=== PATIENT | male | born 1985 | race Caucasian/White ===

== ENCOUNTER 2023-01-11 02:05 | Emergency (ER) | payer MEDICAID ==
[~2023-01-11] VITALS: Ht 182.9 cm; Wt 83.9 kg
[2023-01-11 02:11] VITALS: BP 149/97
[2023-01-11] MEDS ORDERED: NACL 0.9% 1,000 ML IV ONE (02:15)
--- NOTE | 2023-01-11 02:18 | NUR ---
TO BED 2 FOLLOWING TRIAGE
--- NOTE | 2023-01-11 02:29 | NUR ---
PT REPORTS METH AND HEROINE WERE IN THE BAG PT INGESTED
--- NOTE | 2023-01-11 02:35 | NUR ---
X-ray done at bedside.
[2023-01-11 02:42] VITALS: BP 152/94
--- NOTE | 2023-01-11 02:49 | NUR ---
Spoke with poison control staff, She recommend CT scan w/contrast, if CT scan negative, [address] scan positive, bowel irrigation , NG tube as need. Symptomatic treatment -Heroine with Narcan and Meth with Ativan prn.
[2023-01-11 02:50] LABS: ACETAMINOPHEN < 0.5 ug/ml (10-30); ACETONE, SERUM NEGATIVE (NEGATIVE); SALICYLATE < 2.8 mg/dL (2.8-20.0)
--- NOTE | 2023-01-11 03:01 | NUR ---
PATIENT ELOPED FROM FACILITY. DISCHARGE INSTRUCTIONS NOT GIVEN TO PATIENT. DR. Santo NOTIFIED.
--- NOTE | 2023-01-11 03:01 | NUR ---
Patient walked out ER and states " I am going to work. I am out of here." Nurse followed him to parking lot and pulled out IV. Patient refused to come back.
== END 2023-01-11 03:01 | disposition left against medical advice (07) ==
LOC: MED 02:05
DX: F19.90 Other psychoactive substance use, unspecified, uncomplicated (principal); T50.915A Adverse effect of multiple unspecified drugs, medicaments and biological substances, initial encounter; Z79.899 Other long term (current) drug therapy; Y92.89 Other specified places as the place of occurrence of the external cause
CPT/HCPCS: 36415; 74018; 82009; 96360; 99284; G0480; G0482; J7030; Q0092; 99283